=== PATIENT | female | born 1985 | race Caucasian/White ===

== ENCOUNTER 2019-11-25 18:28 | Emergency (ER) | payer BC, SELFPAY ==
[2019-11-25 18:49] VITALS: BP 169/106; PULSE 85; RESP 18; TEMP 36.7; O2SAT 98; BMI 34.2
--- NOTE | 2019-11-25 20:26 | ED_ITS ---
HPI - General Adult General: Chief complaint: General Medical Stated complaint: was SOB yesterday-resolved now Time Seen by Provider: 11/25/19 20:26 Source: patient Mode of arrival: ambulatory Limitations: no limitations History of Present Illness: HPI narrative: Patient comes in today for complaints of difficulty breathing and was awakened 3 times last night. Patient was concerned that there may be increased acidosis due to her diabetes not being controlled well. Patient's last A1c was around July and was noted to be 7.5. Patient takes Trulicity for her blood sugar control. Patient appears well. Patient appears in no acute distress. Patient reports just feeling tired due to poor sleep last night. Associated symptoms: Reports dyspnea Review of Systems General: Reports: 10 or more systems reviewed and unremarkable except in HPI and below Resp: Reports: dyspnea PFSH ED PFSH: Social History Smoking and tobacco status: never smoked Female Reproductive History: Date of last menstrual period: 11/06/19 Physical Exam Const: COMMON NORMALS: no acute distress and patient oriented x3 GENERAL APPEARANCE: cooperative HENMT: COMMON NORMALS: normocephalic, TM's normal bilaterally and Normal external nose present HEAD & SCALP: normal to inspection and normocephalic NOSE: Normal external nose present TYMPANIC MEMBRANE: TM's normal bilaterally MOUTH: Normal oral and palatal mucosa present THROAT: posterior oropharynx normal Eye: GENERAL EYE: appearance normal, both eyes and all related structures Neck/C-Spine: COMMON NORMALS: full ROM Lymph: LYMPHATIC: no lymphadenopathy noted Chest: COMMONS NORMALS: normal inspection of the chest Resp: COMMON NORMALS: normal respiratory effort EFFORT & INSPECTION: Yes able to speak in complete sentences Cardio: COMMON NORMALS: regular rate and regular rhythm RATE: regular rate RHYTHM: regular rhythm GI: COMMON NORMALS: non-tender : COMMON NORMALS: Yes no CVA tenderness BLADDER/KIDNEY EXAM: Yes no CVA tenderness Back/Pelvis: COMMON NORMALS: no CVA tenderness and thoracic and lumbar spine normal to inspection Extremity: COMMON NORMALS: normal to inspection Neuro: COMMON NORMALS: patient oriented x3 and moves all extremities Psych: COMMON NORMALS: mental status grossly normal and cooperative Skin: COMMON NORMALS: no rashes or lesions noted GENERAL SKIN EXAM: no rashes or lesions noted Course Vital Signs: Vital signs: Vital Signs Temperature 98.0 F 11/25/19 18:49 Pulse Rate 85 11/25/19 18:49 Respiratory Rate 18 11/25/19 18:49 Blood Pressure 169/106 11/25/19 18:49 Pulse Oximetry 98 11/25/19 18:49 MDM - General Adult MDM Narrative: Medical decision making narrative: Patient came in today for complaints of difficulty sleeping last night with episodes of shortness of breath. Patient reported that she ended up eating a little later than usual at night which she thinks caused her blood sugar to be higher today. On exam p atient appears well. Lungs are clear to auscultation. Skin is warm and dry color is pink. Vital signs are normal, except for some mild elevation of blood pressure. No signs of distress. Differential diagnosis includes hyperglycemia, GERD, sleep apnea. Reviewed exam with patient laboratory values were normal. Recommended follow-up with primary care discussed at this time to monitor eating too late in the evening prior to bed as I believe it may be secondary to a reflux issue also recommended monitoring carbs and maintaining 150 g or less of carbs a day. Patient reports understanding of care plan and need for follow-up. Lab Data: Labs: Lab Results 11/25/19 11/25/19 11/25/19 Range/Units 20:55 20:55 20:55 WBC 8.8 (4.0-10.0) 10^3/ uL RBC 4.58 (4.1-5.3) 10^6/u L Hgb 13.1 (11.5-15.3) g/dL Hct 39.2 (37.0-47.0) % MCV 85.6 (81-99) fL MCH 28.6 (28.0-34.0) pg MCHC 33.4 (30.0-36.0) g/dL RDW 12.2 (12.1-15.1) % Plt Count 255 (130-400) 10^3/c mm MPV 9.2 (7.4-10.4) fL Neut % (Auto) 52.3 % Lymph % (Auto) 41.7 % Jasper % (Auto) 4.5 % Eos % (Auto) 0.5 % Baso % (Auto) 0.5 % Neut # (Auto) 4.6 (1.8-7.7) 10^3/u L Lymph # (Auto) 3.7 (0.8-4.8) 10^3/u L Jasper # (Auto) 0.4 (0.2-0.9) 10^3/u L Eos # (Auto) 0.0 (0.0-0.8) 10^3/u L Baso # (Auto) 0.0 (0.0-0.1) 10^3/u L Nucleated RBC % (a uto) 0 % Nucleated RBCs # 0.0 /100WBC Sodium 137 (136-145) mmol/L Potassium 4.1 (3.5-5.1) mmol/L Chloride 100 (98-107) mmol/L Carbon Dioxide 25 (22-29) mmol/L Anion Gap 16.1 (5-19) BUN 11 (6-20) mg/dL Creatinine 0.7 (0.5-0.9) mg/dL GFR Calculation 96.4 (90-130) mL/min Glucose 217 H (65-115) mg/dL Calculated Osmolal ity 287 (285-295) mOsm/k g Calcium 9.2 (8.5-10.5) mg/dL Total Bilirubin 0.4 (0.15-1.2) mg/dL AST 14 (0-32) U/L ALT 12 (0-33) U/L Alkaline Phosphata se 40 (35-105) IU/L Total Protein 7.1 (6.6-8.7) g/dL Albumin 4.5 (3.5-5.2) g/dL Globulin 2.6 (1.3-4.6) g/dL Urine Color (Yellow) Urine Appearance (CLEAR) Urine pH (5-7) Ur Specific Gravit y (1.005-1.030) Urine Protein (Negative) Urine Glucose (UA) (Normal) Urine Ketones (Negative) Urine Blood (Negative) Urine Nitrate (Negative) Urine Bilirubin (NEGATIVE) Urine Urobilinogen (Negative) mg/dL Ur Leukocyte Clara ase (Negative) Urine RBC (0-2) /hpf Urine WBC (0-5) /hpf Ur Squamous Epith Cells (0-5) Urine Bacteria (NONE) Urine Mucus Serum Ketones Negative (Negative) 11/25/19 Range/Units 21:00 WBC (4.0-10.0) 10^3/ uL RBC (4.1-5.3) 10^6/u L Hgb (11.5-15.3) g/dL Hct (37.0-47.0) % MCV (81-99) fL MCH (28.0-34.0) pg MCHC (30.0-36.0) g/dL RDW (12.1-15.1) % Plt Count (130-400) 10^3/c mm MPV (7.4-10.4) fL Neut % (Auto) % Lymph % (Auto) % Jasper % (Auto) % Eos % (Auto) % Baso % (Auto) % Neut # (Auto) (1.8-7.7) 10^3/u L Lymph # (Auto) (0.8-4.8) 10^3/u L Jasper # (Auto) (0.2-0.9) 10^3/u L Eos # (Auto) (0.0-0.8) 10^3/u L Baso # (Auto) (0.0-0.1) 10^3/u L Nucleated RBC % (a uto) % Nucleated RBCs # /100WBC Sodium (136-145) mmol/L Potassium (3.5-5.1) mmol/L Chloride (98-107) mmol/L Carbon Dioxide (22-29) mmol/L Anion Gap (5-19) BUN (6-20) mg/dL Creatinine (0.5-0.9) mg/dL GFR Calculation (90-130) mL/min Glucose (65-115) mg/dL Calculated Osmolal ity (285-295) mOsm/k g Calcium (8.5-10.5) mg/dL Total Bilirubin (0.15-1.2) mg/dL AST (0-32) U/L ALT (0-33) U/L Alkaline Phosphata se (35-105) IU/L Total Protein (6.6-8.7) g/dL Albumin (3.5-5.2) g/dL Globulin (1.3-4.6) g/dL Urine Color Yellow (Yellow) Urine Appearance Cloudy (CLEAR) Urine pH 6.5 (5-7) Ur Specific Gravit y 1.015 (1.005-1.030) Urine Protein Neg (Negative) Urine Glucose (UA) 4+ H (Normal) Urine Ketones Negative (Negative) Urine Blood Neg (Negative) Urine Nitrate Negative (Negative) Urine Bilirubin Neg (NEGATIVE) Urine Urobilinogen 1 H (Negative) mg/dL Ur Leukocyte Clara ase Negative (Negative) Urine RBC 0-4 H (0-2) /hpf Urine WBC 0-4 H (0-5) /hpf Ur Squamous Epith Cells 15-25 H (0-5) Urine Bacteria 4+ H (NONE) Urine Mucus 1+ Serum Ketones (Negative) Discharge Plan Discharge Patient Disposition: Home, Self-Care Clinical Impression: Diabetes Qualifiers: Diabetes mellitus type: type 2 Diabetes mellitus senior care insulin use: without keno terminal operator use Diabetes mellitus complication status: with hyperglycemia Qualified Code(s): E11.65 - Type 2 diabetes mellitus with hyperglycemia Condition: Stable Discharge Orders: Discharge Order (Routine); Ordered 11/25/19 Ordered By: Andrés Ruth Discharge Diet: Usual diet Discharge Activity: Increase activity as tolerated Activity Restrictions/Additional Instructions: Continue routine medication as directed. Activity as tolerated. Follow-up with primary care for further treatment. Return to the ER for high fever or incr eased shortness of breath or worsening symptoms. Coding Level of Care Code ED Director Shopper Marketing for Chg Fwd Exam Comprehensive
[2019-11-25 21:06] LABS: Basophils % 0.5 %; Eosinophils % 0.5 %; Hematocrit 39.2 % (37.0-47.0); Hemoglobin 13.1 g/dL (11.5-15.3); Lymphocytes # 3.7 10^3/uL (0.8-4.8); Lymphocytes % 41.7 %; Mean Corpuscular HGB Conc 33.4 g/dL (30.0-36.0); Mean Corpuscular Hemoglobin 28.6 pg (28.0-34.0); Mean Corpuscular Volume 85.6 fL (81-99); Mean Platelet Volume 9.2 fL (7.4-10.4); Monocytes # 0.4 10^3/uL (0.2-0.9); Monocytes % 4.5 %; Neutrophils # 4.6 10^3/uL (1.8-7.7); Neutrophils % 52.3 %; Nucleated Red Blood Cells % 0 %; Platelet Count 255 10^3/cmm (130-400); Red Blood Count 4.58 10^6/uL (4.1-5.3); Red Cell Distribution Width 12.2 % (12.1-15.1); White Blood Count 8.8 10^3/uL (4.0-10.0)
[2019-11-25 21:21] LABS: Alanine Aminotransferase 12 U/L (0-33); Albumin Level 4.5 g/dL (3.5-5.2); Alkaline Phosphatase 40 IU/L (35-105); Anion Gap 16.1 (5-19); Aspartate Amino Transferase 14 U/L (0-32); Blood Urea Nitrogen 11 mg/dL (6-20); Calcium 9.2 mg/dL (8.5-10.5); Carbon Dioxide 25 mmol/L (22-29); Chloride 100 mmol/L (98-107); Globulin 2.6 g/dL (1.3-4.6); Glomerular Filtration Rate 96.4 mL/min (90-130); Glucose 217 mg/dL (65-115); Osmolality Calculated 287 mOsm/kg (285-295); Potassium 4.1 mmol/L (3.5-5.1); Sodium 137 mmol/L (136-145); Total Bilirubin 0.4 mg/dL (0.15-1.2); Total Protein 7.1 g/dL (6.6-8.7)
[2019-11-25 21:36] LABS: Ketone (Acetest) Serum Negative (Negative)
[2019-11-25 21:47] LABS: Add Urine Microscopic? YES; Bilirubin Urine Neg (NEGATIVE); Blood Urine Neg (Negative); Glucose Urine UA 4+ (Normal); Ketones Urine Negative (Negative); Leukocyte Esterase Urine Negative (Negative); Nitrate Urine Negative (Negative); Protein Urine Neg (Negative); Specific Gravity, Urine 1.015 (1.005-1.030); Urine Appearance Cloudy (CLEAR); Urine Color Yellow (Yellow); Urobilinogen Urine 1 mg/dL (Negative); pH Urine 6.5 (5-7)
[2019-11-25 21:48] LABS: Add Urine Culture? No; Bacteria Urine 4+; Mucus Urine 1+; RBC Urine 0-4 /hpf (0-2); Squamous Epithelial Cell Urine 15-25 (0-5); WBC Urine 0-4 /hpf (0-5)
[2019-11-25 22:27] VITALS: BP 130/84; PULSE 79; RESP 18; O2SAT 99
== END 2019-11-25 22:28 | disposition home or self-care (01) ==
PROVIDERS: Emergency Provider Nurse Practitioner Family; PCP Nurse Practitioner Family
DX: E11.65 Type 2 diabetes mellitus with hyperglycemia (principal)
CPT/HCPCS: 12345; 80053; 81001; 82009; 85025; 99281; 99282

== ENCOUNTER 2023-10-15 18:58 | Observation (INO) | payer OTHER, SELFPAY ==
[2023-10-15] VITALS (8 sets, daily range): BP systolic 109–167; BP diastolic 71–97; PULSE 75–99; RESP 12–29; TEMP 36.7–36.9; O2SAT 98–99; BMI 30.7
--- NOTE | 2023-10-15 19:30 | XR_ITS ---
WS: [id number] Portable AP upright chest, 10/15/2023 Clinical Data: cp Comparison: Portable chest, 07/20/2006. Findings: No nodules, masses or effusions are seen. The heart is normal. The pulmonary vascularity is not increased. No pneumonia or pneumothorax is seen. Monitor leads are on the chest wall. Impression: Negative chest.
--- NOTE | 2023-10-15 19:30 | ECG_ITS ---
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 Measurements Intervals [place] Rate: 89 P: 37 [place]: 137 QRS: -18 QRSD: 97 T: 19 QT: 332 QTc: 406 Interpretive Statements SINUS RHYTHM WITH SINUS ARRHYTHMIA POSSIBLE ANTERIOR MYOCARDIAL INFARCTION , PROBABLY OLD [30 ms Q WAVE IN V3/V4, OR R < 0.2 mV IN V4] No previous ECG available for comparison Electronically Signed On 10-16-2023 17:02:51 CDT by Rachid Burleson M.D. [email or web address] Distribution Systemsforrest general hospitalElias Borges Urzed[facility].Bookitit/store/NU/[id number] f
--- NOTE | 2023-10-15 20:00 | W.ED.CHESTPA ---
HPI - Chest Pain General: Chief Complaint: Chest Pain Stated Complaint: Chest pain, Back Pain, High BP Time Seen by Provider: 10/15/23 19:33 Source: patient Mode of arrival: ambulatory Limitations: no limitations History of Present Illness: 38-year-old female states that she had an episode of chest pain around 6 PM states chest pain lasted roughly 10 minutes is a dull ache in the center of her chest. She does have history of diabetes. She does have a strong family history for heart disease well she has no history of heart disease herself. She states she been chest pain-free since then and has had no pain currently denies any shortness of breath nausea or diaphoresis Associated symptoms: Deny abdominal pain, dyspnea, fever(s), nausea or vomiting Review of Systems Const: Denies: fever(s), chills, body aches or change in appetite Eyes: Denies: blurry vision or eye discomfort ENMT: Denies: throat pain or dental pain Card: Reports: chest pain Resp: Denies: dyspnea GI: Denies: abdominal pain, nausea, vomiting or diarrhea : Denies: dysuria Musc: Denies: neck pain or back pain Skin/Breast: Denies: rash Neuro: Denies: headache(s) PFSH ED PFSH: Social History Smoking and tobacco/nicotine status: never used tobacco/nicotine Physical Exam Const: COMMON NORMALS: no acute distress, patient oriented x3 and healthy appearing HENMT: COMMON NORMALS: normocephalic and atraumatic HEAD & SCALP: normocephalic and atraumatic Eye: COMMON NORMALS: Equal, round and reactive pupils present and EOMs intact bilaterally PUPIL: Yes Equal, round and reactive pupils present Neck/C-Spine: COMMON NORMALS: full ROM and supple Chest: COMMONS NORMALS: normal inspection of the chest Resp: COMMON NORMALS: normal respiratory effort, No retractions, No use of accessory muscles and clear to auscultation bilaterally AUSCULTATION: clear to auscultation bilaterally Cardio: COMMON NORMALS: regular rate, regular rhythm and No murmurs present (Cardio) RATE: regular rate RHYTHM: regular rhythm Extremity: COMMON NORMALS: normal to inspection and full ROM Neuro: COMMON NORMALS: patient oriented x3, moves all extremities and no focal motor deficits Psych: COMMON NORMALS: mental status grossly normal, Normal thought process present and cooperative THOUGHT PROCESS: Normal thought process present Skin: COMMON NORMALS: no rashes or lesions noted and no wounds GENERAL SKIN EXAM: no rashes or lesions noted Course Vital Signs: Vital signs: Vital Signs Temperature 98.1 F 10/15/23 19:05 Pulse Rate 84 10/15/23 20:30 Respiratory Rate 16 10/15/23 20:30 Blood Pressure 109/80 10/15/23 20:30 Pulse Oximetry 99 10/15/23 20:30 MDM - Chest Pain Medical Decision Making Patient presents for chest pain is since resolved her initial repeat troponin here negative blood pressure is improved here as well x-ray showed no acute abnormality she has no signs of ACS no signs of dissection or PE she stable for discharge she is follow-up with PCP return if worsening. Medical Records I reviewed the patient's medical records. Lab Data I reviewed the patient's lab results. 10/15/23 19:52 10/15/23 19:52 Laboratory Results WBC 7.49 10^3/uL (3.29-11.43) 10/15/23 19:52 RBC 4.58 10^6/uL (3.85-5.65) 10/15/23 19:52 Hgb 13.30 g/dL (11.27-16.99) 10/15/23 19:52 Hct 40.3 % (36-47) 10/15/23 19:52 MCV 88.0 fl (85-98) 10/15/23 19:52 MCH 29.0 pg (27-33) 10/15/23 19:52 MCHC 33.0 g/dL (30-55) 10/15/23 19:52 RDW 12.8 % (12.1-15.1) 10/15/23 19:52 Plt Count 306 10^3/cmm (157-399) 10/15/23 19:52 MPV 9.1 fL (7.4-10.4) 10/15/23 19:52 Neut % (Auto) 53.9 % 10/15/23 19:52 Lymph % (Auto) 39.1 % 10/15/23 19:52 Gove % (Auto) 5.2 % 10/15/23 19:52 Eos % (Auto) 0.9 % 10/15/23 19:52 Baso % (Auto) 0.5 % 10/15/23 19:52 Neut # (Auto) 4.03 10^3/uL (1.8-7.7) 10/15/23 19:52 Lymph # (Auto) 2.9 10^3/uL (0.8-4.8) 10/15/23 19:52 Gove # (Auto) 0.4 10^3/uL (0.2-0.9) 10/15/23 19:52 Eos # (Auto) 0.1 10^3/uL (0.0-0.8) 10/15/23 19:52 Baso # (Auto) 0.0 10^3/uL (0.0-0.1) 10/15/23 19:52 Nucleated RBC % (auto) 0 % 10/15/23 19:52 Nucleated RBCs # 0.0 /100WBC 10/15/23 19:52 Sodium 138 mmol/L (136-145) 10/15/23 19:52 Potassium 4.4 mmol/L (3.5-5.1) 10/15/23 19:52 Chloride 104 mmol/L (98-107) 10/15/23 19:52 Carbon Dioxide 25 mmol/L (22-29) 10/15/23 19:52 Anion Gap 13.4 (5-19) 10/15/23 19:52 BUN 20 mg/dL (6-20) 10/15/23 19:52 Creatinine 0.8 mg/dL (0.5-0.9) 10/15/23 19:52 GFR Calculation 80.7 mL/min (90-130) L 10/15/23 19:52 Glucose 156 mg/dL (65-115) H 10/15/23 19:52 Calculated Osmolality 292 mOsm/kg (285-295) 10/15/23 19:52 Calcium 9.0 mg/dL (8.5-10.5) 10/15/23 19:52 Total Bilirubin 0.4 mg/dL (0.15-1.2) 10/15/23 19:52 AST 14 U/L (0-32) 10/15/23 19:52 ALT 12 U/L (0-33) 10/15/23 19:52 Alkaline Phosphatase 28 U/L (35-105) L 10/15/23 19:52 Troponin T Baseline < 6 ng/L (0-10) 10/15/23 19:52 Delta Troponin T 6.55241 ABS# (0-10) 10/15/23 21:27 Total Protein 6.9 g/dL (6.6-8.7) 10/15/23 19:52 Albumin 4.5 g/dL (3.5-5.2) 10/15/23 19:52 Globulin 2.4 g/dL (1.3-4.6) 10/15/23 19:52 Lipase 25 U/L (13-60) 10/15/23 19:52 Influenza Type A Ag negative (Negative) 10/15/23 20:19 Influenza Type B Ag negative (Negative) 10/15/23 20:19 XR interpretation done by ED provider, pending radiology final review EKG Data EKG 1: I personally reviewed and interpreted this EKG as follows: EKG interpretation date: 10/15/23 EKG interpretation time: 21:35 Interpretation: nsr hr [address] or t wave abnormalities qrs 115 qtc 417 Discharge Plan Discharge Patient Disposition: Home Clinical Impression: Chest pain Condition: Stable Discharge Orders: Discharge ED (Routine); Ordered 10/15/23 Ordered By: Gonzalo Sutton Referrals: Neil,RADHA Richardson [Primary Care Provider] - 1-3 days Discharge Diet: Advance as tolerated Discharge Activity: Resume usual activity Patient Instructions: Chest Pain (ED) Coding Level of Care Code ED Food Processing Plant Manager for Deshawng Karin
[2023-10-15] MEDS: aspirin 81 mg Chew Tablet 324 MG PO (20:05)
[2023-10-15 20:06] LABS: Basophils % 0.5 %; Eosinophils # 0.1 10^3/uL (0.0-0.8); Eosinophils % 0.9 %; Hematocrit 40.3 % (36-47); Lymphocytes # 2.9 10^3/uL (0.8-4.8); Lymphocytes % 39.1 %; Mean Platelet Volume 9.1 fL (7.4-10.4); Monocytes # 0.4 10^3/uL (0.2-0.9); Monocytes % 5.2 %; Neutrophils # 4.03 10^3/uL (1.8-7.7); Neutrophils % 53.9 %; Nucleated Red Blood Cells % 0 %; Platelet Count 306 10^3/cmm (157-399); Red Blood Count 4.58 10^6/uL (3.85-5.65); Red Cell Distribution Width 12.8 % (12.1-15.1); White Blood Count 7.49 10^3/uL (3.29-11.43)
[2023-10-15 20:24] LABS: Troponin(5th) Baseline < 6 ng/L (0-10)
[2023-10-15 20:27] LABS: Alanine Aminotransferase 12 U/L (0-33); Albumin Level 4.5 g/dL (3.5-5.2); Alkaline Phosphatase 28 U/L (35-105); Anion Gap 13.4 (5-19); Aspartate Amino Transferase 14 U/L (0-32); Blood Urea Nitrogen 20 mg/dL (6-20); Carbon Dioxide 25 mmol/L (22-29); Chloride 104 mmol/L (98-107); Creatinine Clr Calc Pharmacy 92.0211; Globulin 2.4 g/dL (1.3-4.6); Glomerular Filtration Rate 80.7 mL/min (90-130); Glucose 156 mg/dL (65-115); Lipase 25 U/L (13-60); Osmolality Calculated 292 mOsm/kg (285-295); Potassium 4.4 mmol/L (3.5-5.1); Sodium 138 mmol/L (136-145); Total Bilirubin 0.4 mg/dL (0.15-1.2); Total Protein 6.9 g/dL (6.6-8.7)
[2023-10-15 20:40] LABS: Influenza A by IFA negative (Negative); Influenza B by IFA negative (Negative)
--- NOTE | 2023-10-15 21:35 | ECG_ITS ---
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 Measurements Intervals [place] Rate: 87 P: 44 [place]: 137 QRS: 34 QRSD: 115 T: 45 QT: 373 QTc: 450 Interpretive Statements SINUS RHYTHM POSSIBLE ANTERIOR MYOCARDIAL INFARCTION , PROBABLY OLD [30 ms Q WAVE IN V3/V4, OR R < 0.2 mV IN V4] Compared to ECG 10/15/2023 19:06:39 Sinus arrhythmia no longer present Myocardial infarct finding still present Electronically Signed On 10-16-2023 17:08:19 CDT by Rachid Burleson M.D. [id number]
[2023-10-15 21:51] LABS: Troponin 5 2HR 12.53 ng/L (0-10); Troponin 5 2HR Delta 6.53001 ABS# (0-10)
--- NOTE | 2023-10-15 22:23 | P.HP_ITS ---
Providers/Chief Complaint 2 Primary Care Provider: RADHA Hollis Chief Complaint: Chest pain, Back Pain, High BP History of Present Illness Luisa Anne is a 38 year old female with past medical history significant for type 2 diabetes mellitus on insulin, hypertriglyceridemia, obesity, and Asperger syndrome who presents emergency department for left-sided chest pressure. She reports onset around 5:30 PM today. Describes the location is left-sided chest. Rates about a 4-5 out of 10. Reports it lasted about 10 minutes. She was walking when it happened. She is unsure about alleviating or aggravating factors. She is currently chest pain-free in the emergency department. Her mother is bedside reports extensive family history on the maternal side for heart disease. She reports the patient's biological father at age 39 from suspected son with cardiac reason being within the differential. 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 She denies shortness of breath, nausea, vomiting, or diaphoresis. Denies abdominal symptoms. Review of Systems 2 Narrative: A complete review of systems was obtained and is negative except as stated in HPI. Medications/Allergies Allergies Allergy/AdvReac Type Severity Reaction Status Date / Time No Known Allergies Allergy Verified 11/25/19 18:54 PFSH Acute 2 PFSH: Medical History Obesity Hypertriglyceridemia Type 2 diabetes mellitus Asperger syndrome Surgical History Hx of LASIK Family History Father Sudden Social History Smoking and tobacco/nicotine status: never used tobacco/nicotine Alcohol intake: never Substance/Drug Use: never Vitals/I&O/Wt Last Vital Signs Temp 98.1 F 10/15/23 19:05 Pulse 84 10/15/23 20:30 Resp 16 10/15/23 20:30 BP 124/80 10/15/23 22:06 Pulse Ox 98 10/15/23 22:06 Weight last 48 hrs Weight 76.204 kg Physical Exam 2 Narrative: General: Patient is awake and alert. Head: Normocephalic. Atraumatic. EOM intact. Neck: No JVD. Cardiovascular: RRR. No gallops. No murmurs. Lungs: Clear to auscultation, no use of accessory muscles, no crackles or wheezes. Skin: No jaundice. No rashes. Abdomen: Normal bowel sounds, abdomen soft and nontender. Genito Urinary: Genital exam not performed since complaints not related. Rectal: Rectal exam not performed since no symptoms indicated blood loss. Extremities: No cyanosis or clubbing. Musculoskeletal: No swollen or erythematous joints. Neurological: Moves all 4 extremities. No myoclonus. Data 10/15/23 19:52 10/15/23 19:52 A&P Assessment and plan (1) Chest pain: Initial troponin <6 2 hour troponin 12.53 Delta trop 6.53 (intermediate risk) Family history and other risk factors (hypertriglyceridemia, insulin dependent diabetes mellitus, obesity) noted Continue trending troponin Continuous telemetry monitoring NPO after midnight Cardiac stress testing ordered Echocardiogram ordered A1c and lipids in AM for risk stratification (2) Type 2 diabetes mellitus: Reduce basal insulin due to NPO after midnight status Sliding scale insulin correction (3) Hypertriglyceridemia: Continue home meds Lipid panel in AM (4) Obesity: Would benefit from weight loss (5) Asperger syndrome: Plan DVT ppx: Lovenox Code Status: Full Code Attestations 2 Medical Necessity Statement*: Patient presents with chest pain with multiple risk factors concerning for coronary disease for which patient will be admitted to observation for ischemic evaluation with stress testing, echo, telemetry monitoring and serial troponin. Coding Level of Care Code Acute Code for [facility] Diagnoses Chest pain R07.9 Type 2 diabetes mellitus E11.9 Hypertriglyceridemia E78.1 Obesity E66.9 Asperger syndrome F84.5
[2023-10-15 23:04] LABS: D Dimer <= 0.27 ug/mLFEU (0-0.59)
--- NOTE | 2023-10-15 23:15 | PC.NURSE ---
Patient was initially discharged out of system but had not left the room. Dr Sutton decided to keep patient an place on observation. Patient was re-admitted in system.
[2023-10-15] MEDS: enoxaparin 40 mg/0.4 mL Syringe SUBCUT (23:46)
[2023-10-16] VITALS (59 sets, daily range): BP systolic 92–141; BP diastolic 60–90; PULSE 58–90; RESP 10–20; TEMP 36.7–37.3; O2SAT 95–99
[2023-10-16 02:14] LABS: Estmated Average Glucose 151; Hemoglobin A1C 6.9 % (4.0-6.0)
[2023-10-16 02:22] LABS: Troponin 5 6HR 42.24 ng/L (0-10)
[2023-10-16 02:28] LABS: Chol HDL Ratio 3.37 mg/dL (0.0-4.40); Cholesterol 155 mg/dL (0-200); HDL Cholesterol 46 mg/dL (60-100); LDL Cholesterol Calculated 91 mg/dL (50-129); LDL HDL Ratio 1.98 RATIO (0.00-3.22); Triglycerides 89 mg/dL (0-150)
[2023-10-16 02:30] LABS: Troponin 5 6HR Delta 36.24001 ng/L (0-12)
--- NOTE | 2023-10-16 03:21 | PC.NURSE ---
per MD, to skip loading bolus due to recent lovenox injection
[2023-10-16 03:23] LABS: Platelet Count 288 10^3/cmm (157-399)
[2023-10-16] MEDS: heparin drip 25,000 UNIT/500 ML PREMIX 22 UNIT IV (03:36)
[2023-10-16] MEDS: atorvastatin 40 mg Tablet 80 MG PO ×2 (03:36→20:31)
[2023-10-16] MEDS: clopidogrel 300 mg Tablet 600 MG PO (03:36)
--- NOTE | 2023-10-16 06:00 | ECG_ITS ---
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 Measurements Intervals [place] Rate: 82 P: 45 RI: 144 QRS: -3 QRSD: 105 T: 33 QT: 351 QTc: 411 Interpretive Statements SINUS RHYTHM Compared to ECG 10/15/2023 21:35:17 Myocardial infarct finding no longer present Electronically Signed On 10-16-2023 17:07:48 CDT by Rachid Burleson M.D. [id number]
--- NOTE | 2023-10-16 06:44 | P.CONIM_ITS ---
Providers/Reason For Consult 2 Consulting Physician/Specialty*: Rachid Burleson MD/ Cardiology Reason for Consult*: NSTEMI Requesting Physician: Dr Louise Attending Physician: Sebastián Louise MD Primary Care Provider: RADHA Hollis History of Present Illness History of Present Illness Luisa Anne is a 38 year old female with past medical history of diabetes, hypertriglyceridemia, family history of CAD who presented to hospital with substernal chest pain. Troponin elevated significantly from 6-42 at 6 hours. EKG not showing significant ischemic changes.No more chest pain at this time. Review of Systems 2 Const: Denies: fever(s), chills, body aches or change in appetite Eyes: Denies: blurry vision or eye discomfort ENMT: Denies: throat pain or dental pain Card: Reports: chest pain Resp: Denies: dyspnea GI: Denies: abdominal pain, nausea, vomiting or diarrhea : Denies: dysuria Musc: Denies: neck pain or back pain Skin/Breast: Denies: rash Neuro: Denies: headache(s) Medications/Allergies Home Medications Medication Instructions Recorded Confirmed Last Taken Type fenofibrate nanocrystallized 145 145 mg PO DAILY 10/15/23 10/15/23 1 Day Ago History mg tablet ~10/14/23 insulin glargine 100 unit/mL (3 18 unit SUBCUT DAILY 10/15/23 10/15/23 1 Day Ago History mL) subcutaneous pen (Lantus ~10/14/23 Solostar U-100 Insulin) insulin lispro 100 unit/mL See Protocol SUBCUT TIDWM 10/15/23 10/15/23 10/15/23 History subcutaneous pen metformin 500 mg tablet 500 mg PO BID 10/15/23 10/15/23 10/15/23 History semaglutide 3 mg tablet (Rybelsus) 3 mg PO DAILY 10/15/23 10/15/23 1 Day Ago History ~10/14/23 Allergies Allergy/AdvReac Type Severity Reaction Status Date / Time No Known Allergies Allergy Verified 11/25/19 18:54 Current Medications Generic Name Dose Route Start Last Admin Trade Name Freq PRN Reason Stop Dose Admin Atorvastatin Calcium 80 mg 10/16/23 03:16 10/16/23 03:36 Atorvastatin 40 Mg Tablet PO 80 mg BEDTIME LAURIE Administration Heparin Sodium/Sodium Chloride 25,000 unit in 500 mls @ 0 mls/hr 10/16/23 03:30 10/16/23 06:09 Heparin Drip IV 13.75 unit/kg/hr .Q0M LAURIE 22 mls/hr Titration Protocol Per Protocol PFSH Acute 2 PFSH: Medical History Obesity Hypertriglyceridemia Type 2 diabetes mellitus Asperger syndrome Surgical History Hx of LASIK Family History Father Sudden Social History Smoking and tobacco/nicotine status: never used tobacco/nicotine Alcohol intake: never Substance/Drug Use: never Female Reproductive History: Date of last menstrual period: 10/09/23 Vitals/I&O/Wt Last Vital Signs Temp 98.0 F 10/16/23 04:00 Pulse 89 10/16/23 04:54 Resp 18 10/16/23 04:00 BP 132/86 10/16/23 04:00 Pulse Ox 99 10/16/23 04:00 O2 Del Method Room Air 10/16/23 04:00 10/15/23 10/15/23 10/16/23 14:59 22:59 06:59 Intake Total 53.9 / 53.9 Output Total 0 / 0 Balance 53.9 / 53.9 Weight last 48 hrs Weight 175 lb 14.4 oz Weight 176 lb 6.4 oz Weight 168 lb Physical Exam 2 Narrative: GENERAL: Patient is alert, awake and oriented x3. [] NECK: No jugular vein distension. [] HEENT: No cyanosis. No icterus. No pallor. [] HEART: Regular S1 and S2. No murmur, rub or gallop. [] LUNGS: Clear to auscultate bilaterally. [] CENTRAL NERVOUS SYSTEM: Grossly nonfocal. [] EXTREMITIES: Lower extremities with no edema bilaterally. Data 10/16/23 01:51 10/15/23 19:52 A&P Assessment and plan (1) NSTEMI (non-ST elevated myocardial infarction): (2) Chest pain: (3) Hypertriglyceridemia: (4) Type 2 diabetes mellitus: Plan Patient has presented with typical chest pain symptoms. She has multiple risk factors for CAD. Troponin did increase significantly from baseline of 6-42 at 6 hours. He has family history of CAD. We will proceed with coronary angiogram possible PCI. N.p.o. for now. Will recommend starting low-dose beta-marshal. Echo is pending. Thank you for involving us with care of this patient. We will continue to follow. Please call with questions. Consult Attestations 2 Medical Necessity Statement: Care expected to cross 2 midnights. Coding Level of Care Code Acute Code for [facility] Diagnoses NSTEMI (non-ST elevated myocardial infarction) I21.4 Chest pain R07.9 Hypertriglyceridemia E78.1 Type 2 diabetes mellitus E11.9
--- NOTE | 2023-10-16 09:04 | PC.CHAP ---
Pastoral Care Encounter/Spiritual Assessment Type of Contact [] Declined side panel hanger visit [] Patient/Family/Request visit [] Outpatient visit [] Follow-up visit [] Physician referral [] Code/Alert [x] Routine visit [] Staff referral [] Actively dying [] Patient sleeping [x] Family support [] [] Out of room [] Palliative care [] [] Receiving care in room [] Pre-surgical visit [] Trauma [] Long length of stay [] ICU visit [] Other: Relational/Emotional Strength [x] Patient feels connected with others/family/visitors/staff [] Distress [] Loneliness/isolation [] Abandonment Spirituality of Patient [x] Person of Rut [] Attends Nondenominational of their Rut [x] Believes in Prayer [] Reads Bible or Congregation materials [] There are Spiritual issues to be addressed Sales Market Leader Interventions [x] Prayer [x] Active listening [] Non-anxious presence [x] Spiritual/emotional support [] Crisis/trauma care [] Spiritual counseling [] Bereavement support [] Provided bereavement packet [] Provided Bible/devotional materials [] Provided toy/stuffed animal, coloring book to patient or family member [] Provided Communion [] Anointing/[place] [] Salvation [x] Completed spiritual assessment [] Other: Impact on Illness or Injury [] Angry [] Fearful [] Anxious [] Often cries [] Exhaustion [] Unable to work [] Unable to attend jew [] Unable to walk/stand [] Unable to read [] Unable to drive [] Unable to eat/drink [] Unable to sleep [] Unable to be with family [] Patient intubated [] Other: Summary Time spent with patient 5 min
[2023-10-16] MEDS: aspirin 81 mg EC Tablet PO (09:20)
[2023-10-16] MEDS: fenofibrate 145 mg Tablet PO (09:20)
[2023-10-16 09:55] LABS: Partial Thromboplastin Time 87.2 SECONDS (23.9-36.7)
--- NOTE | 2023-10-16 11:51 | P.PN_ITS ---
Vitals/I&O/Wt Last Vital Signs Temp 99.2 F 10/16/23 08:00 Pulse 86 10/16/23 08:00 Resp 18 10/16/23 04:00 BP 141/90 10/16/23 08:00 Pulse Ox 97 10/16/23 08:00 O2 Del Method Room Air 10/16/23 04:00 10/15/23 10/16/23 10/16/23 22:59 06:59 14:59 Intake Total 53.9 / 53.9 104.867 / 104.867 Output Total 0 / 0 Balance 53.9 / 53.9 104.867 / 104.867 Weight last 48 hrs Weight 79.787 kg Weight 80.014 kg Weight 76.204 kg Data 10/16/23 01:51 10/15/23 19:52 A&P Assessment and plan (1) NSTEMI (non-ST elevated myocardial infarction): (2) Type 2 diabetes mellitus: (3) Asperger syndrome: Plan Luisa Anne is a 38 year old female with past medical history significant for type 2 diabetes mellitus on insulin, hypertriglyceridemia, obesity, and Asperger syndrome who presents emergency department for left-sided chest pressure. Found to have NSTEMI. Given extensive cardiac history in the family, as per cardiology patient scheduled for cardiac cath this afternoon. She is n.p.o. Continue aspirin 81 mg daily Atorvastatin 80 mg Plavix 75 mg And heparin drip for now. Follow-up 2D echo DVT prophylaxis, already on heparin drip PUD prophylaxis with IV Pepcid 20 mg twice a day She is full code for now Plan of care discussed with family mother and at bedside. Attestations 2 Medical Necessity Statement*: She needs continued hospitalization less than 2 midnights for cardiac monitoring and catheterization for NSTEMI. Time Spent in Patient Care: 15 minutes Coding Level of Care Code Acute Code for [facility] Diagnoses NSTEMI (non-ST elevated myocardial infarction) I21.4 Type 2 diabetes mellitus E11.9 Asperger syndrome F84.5 Time Spent (min) 15
--- NOTE | 2023-10-16 13:00 | XACV_ITS ---
Exam Room: [facility] Ht: 157 cm Wt: 79 kg BSA: 1.90 m2 Gender: Female : 1985 Any Known Allergies: No known allergies Exam Priority: Routine Procedure(s): Procedure Description: Diagnostic procedure Diagnostic Cath Status: Urgent Diagnostic Findings * No significant disease noted in the Left Main, Left Anterior Descending, Right, or Circumflex coronary arteries. * Coronary angiography shows right dominance. Conclusions 1. No significant disease noted in the Left Main, Left Anterior Descending, Right, or Circumflex coronary arteries. 2. Normal left ventricular systolic function. Ejection fraction of 65%. Recommendations * Aggressive risk factor modification. * Outpatient cardiology follow up in 4 weeks. Interventional RX Recommendation: medical therapy and/or counseling Diagnostic RX Recommendation: medical therapy and/or counseling Ventriculography Ejection Fraction: 65.0 % Pressures Phase:Rest AO : 97 / 79 ( 89 ) @ 2:33:00 PM 119 / 72 ( 94 ) @ 2:40:00 PM 118 / 72 ( 94 ) @ 2:40:00 PM LV : 118 / 0 / 4 @ 2:39:00 PM 139 / -18 / 5 @ 2:39:00 PM 139 / -17 / 7 @ 2:40:00 PM Valves Phase:DefaultPhase AV : 20.0 @ 1:48:49 PM 20.0 @ 1:48:49 PM AV Mean Gradient: 27.0 @ 1:48:49 PM 27.0 @ 1:48:49 PM Clinical Evaluation EBL: 5mL-10mL Procedural Details Procedure Consent Obtained. Current Diagnosis : Chest Pain. Pre-Procedure Time Out. Identified patient by full name and date of as verbalized by the patient/guarantor. Does the consent match the physician's order: Yes. Accurate & Complete Informed Consent: Yes. Inpatient/Outpatient History & Physical on Chart: Yes. If H&P is completed, is and addenduem needed: No; If yes, is the addendum complete: N/A. Visualize and Verify Site with Patient/Guarantor: N/A. Relevant Radiology Images available: Yes. Pre-op teaching completed and patient verbalized understanding. The risks, benefits, and alternatives of sedation and/or procedure were discussed by physician. The patient agrees to continue. Procedure started. [facility] Clinical Fraility Score: 3: Managing Well. Pipe Supervisor Indications: ACS > 24 hours. Chest Pain Symptom Assessment: Atypical Angina. Correct patient, site and procedure confirmed by cath team. Current diagnosis: NSTEMI. PERRLA. Strong, equal hand medical detailist bilaterally. Lungs clear x 5 lobes. A 20 gauge IV was started in the right anticubital using aseptic technique. IV Fluids: 0.9% NaCl at KVO. 0 mL infused prior to metallurgy laboratory technician. Oxygen started at 2liters/min via nasal canula. right groin was prepped with chloroprep then draped in the usual sterile fashion. right radial was prepped with chloroprep then draped in the usual sterile fashion. Physician arrived. Physician scrubbed in. Immediate Pre-Procedure Time Out. Correct Patient: Yes; Correct Procedure: Yes; Correct Site: Yes; Correct Patient Position: Yes; Correct Supplies: Yes; Dried Flammable Prep: Yes; Blood Products Available: N/A;. Lidocaine 1% infiltrated to the right radial. Arterial access obtained. A 5 [place] TIG catheter in over wire. Contrast hand injected through the catheter. Glidewire inserted through the catheter. Wire out. [place] wire inserted through the catheter. Catheter out OTW. Wire out. A TR Band was successful obtaining hemostatsis at the Right Radial artery insertion site. Lidocaine 1% infiltrated to the right groin. Arterial access obtained with micropuncture set. A 5 [place] JL4 catheter in over wire. Multiple views taken of left coronary artery. Catheter removed over the standard wire. A 5 [place] JR4 catheter in over wire. Multiple views taken of right coronary artery. Catheter removed over the standard wire. A 5 [place] Angled Pig catheter in over wire. EDP Sample taken: LV 118/0,4; HR: 77 BPM; SpO2: 98%. LV gram performed in JARRETT @ 10 mL/second for a total of 30 mL. EDP Sample taken: LV 139/-19,5; HR: 83 BPM; SpO2: 98%. Pullback taken: LV 139/-18,7; AO 119/72(94); Mean: 27mmHg, Peak to Peak: 20mmHg, SEP: 10sec/min; HR: 81 BPM; SpO2: 98%. Catheter removed over the standard wire. A Right femoral angiogram was performed to determine safe placement of closure device. Lidocaine 1% infiltrated to the right groin. A Angio-Seal VIP ([place]) was successful obtaining hemostatsis at the Right Femoral artery insertion site. Post Procedure: Pulses reassessed and unchanged. PERRLA. Strong, equal hand medical detailist bilaterally. No VTE prophylaxis required. Medication's Wasted: Other = Fentanyl 75mcg. Medication's Wasted: Heparin = 1000 units. Medication's Wasted: Nitro = 49.6 mg. Total IV fluids: 50 mL. Complications: None. Estimated blood loss: 5mL-10mL. Responsiveness - Normal response to verbal stimuli; alert and oriented, PERRLA. Airway - Unaffected, no intervention required; spontaneous ventilation. Circulation: W/N/L, pulses unchanged. Nausea/Vomiting: No. Procedure completed. Patient transferred by bed to 1st floor. Vital chart was stopped. Access Site Site: Right Radial artery Sheath Size: 6 Fr Hemostasis Method: TR Band Hemostasis Success: Successful Site: Right Femoral artery Sheath Size: 6 Fr Hemostasis Method: Angio-Seal VIP ([place]) Hemostasis Success: Successful Procedure Medications Start: 1:10 PM Stop: 1:10 PM Medication: Versed Amount: 1 mg Route: I.V. Start: 1:10 PM Stop: 1:10 PM Medication: Benadryl Amount: 25 mg Route: I.V. Start: 1:15 PM Stop: 1:15 PM Medication: Nitrogylcerin Amount: 200 mcg Route: I.A. Start: 1:16 PM Stop: 1:16 PM Medication: Fentanyl Amount: 25 mcg Route: I.V. Start: 1:17 PM Stop: 1:17 PM Medication: Versed Amount: 1 mg Route: I.V. Start: 1:20 PM Stop: 1:20 PM Medication: Nitrogylcerin Amount: 200 mcg Route: I.A. I, the attending physician, have reviewed and verified all procedure medications. Yes, all medications given per verbal order History/Risk Factors Hypertension: No Dyslipidemia: Yes Peripheral Arterial Disease (PAD): No Myocardial Infarction ([place]): No Obesity: Yes Renal Disease: No Tobacco Use: Never Prior Interventions PCI: No CABG: No Valve Surgery: No Report Signatures Finalized by Rachid Burleson MD on 10/18/2023 10:04 PM
--- NOTE | 2023-10-16 13:02 | W.PM.OPSUD ---
Surgery/Procedure H&P Update DATE OF PROCEDURE: October 16, 2023 DATE H&P PERFORMED: 10/16/23 H&P UPDATE INFORMATION: I have reviewed H&P completed within last 30 days, I have examined patient prior to procedure and No changes to prior documentation PREOP DIAGNOSIS: NSTEMI PRIMARY INDICATION FOR PROCEDURE: NSTEMI PLANNED PROCEDURE: Left heart cath with possible percutaneous coronary intervention PATIENT REASSESSED PRIOR TO SEDATION, WITH NO CHANGE NOTED: Yes PHYSICAL EXAM: alert, oriented x 3, clear to auscultation bilaterally and regular rate & rhythm AIRWAY EVAL/ANESTHESIA PLAN: normal airway, ASA III, Local Anesthesia, Risks, benefits & alternatives of sedation and/or procedure discussed and Patient agrees to continue as planned ADDITIONAL INFORMATION: Moderate sedation
[2023-10-16 13:05] LABS: HCG, Serum Qual Negative (Negative)
[2023-10-16 20:36] LABS: Glucose Point of Care 324 mg/dL (70-110)
[2023-10-16] MEDS: insulin lispro 100 unit/1 mL SUBCUT (20:58)
--- NOTE | 2023-10-16 23:16 | USCV_ITS ---
Mild Luisa Anne Age: 38 Gender: F : 1985 Exam Date: 10/16/2023 02:23 Ordering Phys: Sebastián Louise MD Technologist: OREN Exam Location: [facility] [place] Indication: chest pain. No history of cardiac intervention per patient. BP: 118 / 64 HR: 75 Rhythm: Sinus Technical Quality: Adequate MEASUREMENTS (Male / Female) Normal Values 2D ECHO LV Diastolic Diameter PLAX 3.3 cm 4.2 - 5.9 / 3.9 - 5.3 cm IVS Diastolic Thickness 1.4 cm 0.6 - 1.0 / 0.6 - 0.9 cm IVS Systolic Thickness 1.6 cm LVPW Diastolic Thickness 1.4 cm 0.6 - 1.0 / 0.6 - 0.9 cm LVPW Systolic Thickness 1.4 cm LVOT Diameter 1.9 cm LV Ejection Fraction 2D Teich 60.3 % LV Ejection Fraction MOD 2C 62.2 % LV Ejection Fraction 2C AL 62.8 % LA Diameter 2.5 cm LA Sys Volume AL 17.6 cm cubed LA Sys Volume Index AL 9.5 cm cubed/m squared Aorta at Sinotubular Diameter 2.4 cm IVC Diameter 1.8 cm M-MODE LA Ao Ratio MM 1.7 AV Cusp Separation MM 1.6 cm DOPPLER AV Peak Velocity 161.0 cm/s LVOT Peak Velocity 103.0 cm/s AV Area Cont Eq vti 2.1 cm squared AV Area Cont Eq pk 1.9 cm squared MV Area PHT 3.7 cm squared Mitral E to A Ratio 1.3 TV Peak E Velocity 89.0 cm/s PV Peak Velocity 98.0 cm/s RV Ejection Time 0.4 s FINDINGS Left Ventricle Left ventricle is left ventricle is normal in size. LV systolic function is normal with EF of 60 to 65%. No regional wall motion abnormalities are seen. Right Ventricle Normal in size and function Right Atrium Normal in size Left Atrium Normal in size Mitral Valve Structurally normal mitral valve. Mild mitral regurgitation. Aortic Valve Structurally normal aortic valve. No significant stenosis. Mild regurgitation. Tricuspid Valve Mild tricuspid regurgitation. Insufficient TR jet to evaluate RVSP. Pulmonic Valve Mild pulmonic regurgitation. Pericardium Normal Aorta Normal in size IVC Appears to be normal CONCLUSIONS LV systolic function is normal with EF of 60-65% Mild mitral regurgitation Mild aortic regurgitation Mild tricuspid regurgitation Mild pulmonic regurgitation. No comparison studies are available. Rachid Burleson MD (Electronically Signed) Final Date: 16 October 2023 16:29 S
[2023-10-17 04:00] VITALS: BP 109/78; PULSE 84; RESP 18; TEMP 36.7; O2SAT 98
[2023-10-17 06:00] VITALS: PULSE 61
[2023-10-17 06:37] LABS: Glucose Point of Care 255 mg/dL (70-110)
[2023-10-17 07:05] VITALS: BP 115/67; PULSE 66; RESP 12; TEMP 36.3; O2SAT 99
--- NOTE | 2023-10-17 07:20 | PM.PN ---
Subjective Subjective: Patient doing well. No chest pain Vitals/I&O/Wt Last Vital Signs Temp 97.4 F L 10/17/23 07:05 Pulse 66 10/17/23 07:05 Resp 12 10/17/23 07:05 BP 115/67 10/17/23 07:05 Pulse Ox 99 10/17/23 07:05 O2 Del Method Room Air 10/17/23 07:05 10/16/23 10/17/23 10/17/23 22:59 06:59 14:59 Intake Total 795.9 / 926.100 Output Total 0 / 0 Balance 795.9 / 926.100 Weight last 48 hrs Weight 175 lb Weight 175 lb 14.4 oz Weight 176 lb 6.4 oz Weight 168 lb Physical Exam Narrative: GENERAL: Patient is alert, awake and oriented x3. [] NECK: No jugular vein distension. [] HEENT: No cyanosis. No icterus. No pallor. [] HEART: Regular S1 and S2. No murmur, rub or gallop. [] LUNGS: Clear to auscultate bilaterally. [] CENTRAL NERVOUS SYSTEM: Grossly nonfocal. [] EXTREMITIES: Lower extremities with no edema bilaterally. Data 10/16/23 01:51 10/15/23 19:52 A&P Assessment and plan (1) NSTEMI (non-ST elevated myocardial infarction): (2) Chest pain: (3) Hypertriglyceridemia: (4) Type 2 diabetes mellitus: Plan Patient doing well. no more chest pain. She can be discharged home from [facility] standpoint.Cath did not show significant stenosis. Thank you for involving us with care of this patient. Please call with questions. Attestations Medical Necessity Statement*: Care expected to cross 2midnights. Coding Level of Care Code Acute Code for [facility] Diagnoses NSTEMI (non-ST elevated myocardial infarction) I21.4 Chest pain R07.9 Hypertriglyceridemia E78.1 Type 2 diabetes mellitus E11.9
[2023-10-17] MEDS: metoprolol tartrate 25 mg Tablet 12.5 MG PO (08:45)
[2023-10-17] MEDS: fenofibrate 145 mg Tablet PO (08:45)
[2023-10-17] MEDS: aspirin 81 mg EC Tablet PO (08:46)
[2023-10-17] MEDS: insulin lispro 100 unit/1 mL SUBCUT (08:46)
--- NOTE | 2023-10-17 09:12 | P.DS_ITS ---
Discharge Providers Date of Admission: 10/15/23 22:22 Date of Discharge: October 17, 2023 Attending Provider at Admission: Sebastián Louise MD Attending Provider at Discharge: Tamra Fair MD Consults: cardiology Primary Care Provider: RADHA Hollis Diagnoses at Discharge Discharge Diagnosis (1) NSTEMI (non-ST elevated myocardial infarction): Status: Acute (2) Chest pain: Status: Acute (3) Hypertriglyceridemia: Status: Acute (4) Type 2 diabetes mellitus: Status: Acute Reason for Visit Reason for Visit: Chest pain, Back Pain, High BP Brief History: 38 year old female with past medical his tory significant for type 2 diabetes mellitus on insulin, hypertriglyceridemia, obesity, and Asperger syndrome who presents emergency department for left-sided chest pressure. She reports onset around 5:30 PM today. Describes the location is left-sided chest. Rates about a 4-5 out of 10. Reports it lasted about 10 minutes. She was walking when it happened. She is unsure about alleviating or aggravating factors. She is currently chest pain-free in the emergency department. Her mother is bedside reports extensive family history on the maternal side for heart disease. She reports the patient's biological father at age 39 from suspected son with cardiac reason . Hospital Course Hospital Course 38 year old female with past medical history significant for type 2 diabetes mellitus on insulin, hypertriglyceridemia, obesity, and Asperger syndrome who presents emergency department for left-sided chest pressure. Found to have NSTEMI. Given extensive cardiac history in the family, as per cardiology patient underwent cardiac cath which did not show any significant coronary artery disease. Chest pain resolved on admission and she is feeling better to be discharged home with aspirin 81 mg daily atorvastatin 40 mg daily and metoprolol 12.5 mg twice a day. Follow-up with TONIO Ramirez in 1 week. Physical Exam Narrative: GENERAL: Patient is alert, awake and oriented x3. [] NECK: No jugular vein distension. [] HEENT: No cyanosis. No icterus. No pallor. [] HEART: Regular S1 and S2. No murmur, rub or gallop. [] LUNGS: Clear to auscultate bilaterally. [] CENTRAL NERVOUS SYSTEM: Grossly nonfocal. [] EXTREMITIES: Lower extremities with no edema bilaterally. 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 echo complete* [id number] Routine Ultrasound 10/16/23 23:16 Taken Laboratory Results WBC 7.49 10^3/uL (3.29-11.43) 10/15/23 19:52 RBC 4.58 10^6/uL (3.85-5.65) 10/15/23 19:52 Hgb 13.30 g/dL (11.27-16.99) 10/15/23 19:52 Hct 40.3 % (36-47) 10/15/23 19:52 MCV 88.0 fl (85-98) 10/15/23 19:52 MCH 29.0 pg (27-33) 10/15/23 19:52 MCHC 33.0 g/dL (30-55) 10/15/23 19:52 RDW 12.8 % (12.1-15.1) 10/15/23 19:52 Plt Count 288 10^3/cmm (157-399) 10/16/23 01:51 MPV 9.1 fL (7.4-10.4) 10/15/23 19:52 Neut % (Auto) 53.9 % 10/15/23 19:52 Lymph % (Auto) 39.1 % 10/15/23 19:52 [place] % (Auto) 5.2 % 10/15/23 19:52 Eos % (Auto) 0.9 % 10/15/23 19:52 Baso % (Auto) 0.5 % 10/15/23 19:52 Neut # (Auto) 4.03 10^3/uL (1.8-7.7) 10/15/23 19:52 Lymph # (Auto) 2.9 10^3/uL (0.8-4.8) 10/15/23 19:52 [place] # (Auto) 0.4 10^3/uL (0.2-0.9) 10/15/23 19:52 Eos # (Auto) 0.1 10^3/uL (0.0-0.8) 10/15/23 19:52 Baso # (Auto) 0.0 10^3/uL (0.0-0.1) 10/15/23 19:52 Nucleated RBC % (auto) 0 % 10/15/23 19:52 Nucleated RBCs # 0.0 /100WBC 10/15/23 19:52 APTT 87.2 SECONDS (23.9-36.7) H 10/16/23 09:23 D-Dimer <= 0.27 ug/mLFEU (0-0.59) 10/15/23 19:52 Sodium 138 mmol/L (136-145) 10/15/23 19:52 Potassium 4.4 mmol/L (3.5-5.1) 10/15/23 19:52 Chloride 104 mmol/L (98-107) 10/15/23 19:52 Carbon Dioxide 25 mmol/L (22-29) 10/15/23 19:52 Anion Gap 13.4 (5-19) 10/15/23 19:52 BUN 20 mg/dL (6-20) 10/15/23 19:52 Creatinine 0.8 mg/dL (0.5-0.9) 10/15/23 19:52 GFR Calculation 80.7 mL/min (90-130) L 10/15/23 19:52 Glucose 156 mg/dL (65-115) H 10/15/23 19:52 POC Glucose 255 mg/dL (70-110) H 10/17/23 06:32 Estimat Average Glucose 151 10/16/23 01:51 Hemoglobin A1c 6.9 % (4.0-6.0) H 10/16/23 01:51 Calculated Osmolality 292 mOsm/kg (285-295) 10/15/23 19:52 Calcium 9.0 mg/dL (8.5-10.5) 10/15/23 19:52 Total Bilirubin 0.4 mg/dL (0.15-1.2) 10/15/23 19:52 AST 14 U/L (0-32) 10/15/23 19:52 ALT 12 U/L (0-33) 10/15/23 19:52 Alkaline Phosphatase 28 U/L (35-105) L 10/15/23 19:52 Troponin T Baseline < 6 ng/L (0-10) 10/15/23 19:52 Troponin T 120 Minute 12.53 ng/L (0-10) H 10/15/23 21:27 Delta Troponin T 6.02954 ABS# (0-10) 10/15/23 21:27 Troponin T Hi Sens 6Hr 42.24 ng/L (0-10) H 10/16/23 01:51 Troponin T Hi Sens 6Hr Delta 36.13452 ng/L (0-12) H* 10/16/23 01:51 Total Protein 6.9 g/dL (6.6-8.7) 10/15/23 19:52 Albumin 4.5 g/dL (3.5-5.2) 10/15/23 19:52 Globulin 2.4 g/dL (1.3-4.6) 10/15/23 19:52 Triglycerides 89 mg/dL (0-150) 10/16/23 01:51 Cholesterol 155 mg/dL (0-200) 10/16/23 01:51 LDL Cholesterol, Calc 91 mg/dL (50-129) 10/16/23 01:51 HDL Cholesterol 46 mg/dL (60-100) L 10/16/23 01:51 LDL/HDL Ratio 1.98 RATIO (0.00-3.22) 10/16/23 01:51 Cholesterol/HDL Ratio 3.37 mg/dL (0.0-4.40) 10/16/23 01:51 Lipase 25 U/L (13-60) 10/15/23 19:52 HCG, Qual Negative (Negative) 10/16/23 01:51 Influenza Type A Ag negative (Negative) 10/15/23 20:19 Influenza Type B Ag negative (Negative) 10/15/23 20:19 Vitals Last Vital Signs Temp 97.4 F L 10/17/23 07:05 Pulse 66 10/17/23 07:05 Resp 12 10/17/23 07:05 BP 115/67 10/17/23 07:05 Pulse Ox 99 10/17/23 07:05 O2 Del Method Room Air 10/17/23 07:05 Discharge Plan Discharge Patient Disposition: Home Condition: Stable Prescriptions: New atorvastatin 40 mg Tablet 40 mg PO BEDTIME 30 Days Qty: 30 0RF aspirin 81 mg Tablet,Delayed Release (Dr/Ec) 81 mg PO DAILY 30 Days Qty: 30 0RF metoprolol tartrate 25 mg Tablet 12.5 mg PO BID@0900,2100 30 Days Qty: 60 0RF Continued metformin 500 mg tablet 500 mg PO BID insulin lispro 100 unit/mL insulin pen See Protocol SUBCUT TIDWM Protocol: Insulin Corrective High-Dose Regimen Condition: Fingerstick Blood Glucose Dose/Route: Insulin Units Condition: 141-180 mg/dl Dose/Route: 6 units/SQ Condition: 181-220 mg/dl Dose/Route: 8 units/SQ Condition: 221-260 mg/dl Dose/Route: 10 units/SQ Condition: 261-300 mg/dl Dose/Route: 12 units/SQ Condition: 301-350 mg/dl Dose/Route: 14 units/SQ Condition: 351-400 mg/dl Dose/Route: 16 units/SQ Condition: greater than 400 mg/dl Dose/Route: 18 units/SQ fenofibrate nanocrystallized 145 mg tablet 145 mg PO DAILY insulin glargine [Lantus Solostar U-100 Insulin] 100 unit/mL (3 mL) insulin pen 18 unit SUBCUT DAILY Rybelsus 3 mg tablet 3 mg PO DAILY Discharge Orders: Discharge Order (Routine); Ordered 10/17/23 Ordered By: Tamra Fair Referrals: Vilma Ramirez FNP [Nurse Practitioner] - 11/02/23 3:00 pm Trejo,RADHA Richardson [Primary Care Provider] - 10/26/23 9:30 am Discharge Diet: Advance as tolerated Discharge Activity: Resume usual activity Patient Instructions: Chest Pain (ED), Coronary Angioplasty (DC), Opioid Safety, Post Angiogram Home Care Instructions, Post Heart Attack Stoplight Stand Alone Forms: Work/School Release Discharge Attestations Time Spent in Discharge Care*: less than 30 min Quality Metrics Clinical Quality Measures [ No reported AMI, CVA or VTE this stay] Coding Level of Care Code Acute Code for [facility] Fwd Diagnoses NSTEMI (non-ST elevated myocardial infarction) I21.4 Chest pain R07.9 Hypertriglyceridemia E78.1 Type 2 diabetes mellitus E11.9 Time Spent (min) 15
[2023-10-17 10:40] VITALS: BP 115/67; PULSE 66; RESP 12; TEMP 36.3; O2SAT 99
--- NOTE | 2023-10-17 11:18 | PC.NURSE ---
Discharge Note Patient discharged to [home] via [w/c to POV] accompanied by [her spouse]. Discharge instructions reviewed with patient and/or inside sales representative. Mobile pharmacy medications and/or prescriptions provided. Belongings/home medications returned.
== END 2023-10-17 11:35 | disposition home or self-care (01) ==
LOC: ER 22:03 → CSU 22:23
PROVIDERS: Internal Medicine; Admitting Provider Internal Medicine; Emergency Provider Emergency Medicine; PCP Nurse Practitioner Family; Visit Provider Internal Medicine
DX: I21.4 Non-ST elevation (NSTEMI) myocardial infarction (principal); E78.1 Pure hyperglyceridemia; E11.9 Type 2 diabetes mellitus without complications; Z79.4 Long term (current) use of insulin; E66.9 Obesity, unspecified; Z68.32 Body mass index [BMI] 32.0-32.9, adult; F84.5 Asperger's syndrome; Z82.49 Family history of ischemic heart disease and other diseases of the circulatory system
CPT/HCPCS: 36415; 36416; 71045; 80053; 80061; 82962; 83036; 83690; 84484; 84703; 85025; 85049; 85378; 85730; 87804; 93005; 93306; 93458; 96372; 96374; 96375; 96376; 99152; 99153; 99285; C1760; C1769; C1887; C1894; G0269; G0378; J1200; J1644; J1650; J1815; J2250; J3010; J3490; J7030; Q9967

== ENCOUNTER → 2023-11-02 16:02 | Outpatient (BNVA) | payer OTHER, SELFPAY | PROVIDERS: PCP Nurse Practitioner Family; Visit Provider Nurse Practitioner Family | DX: I21.4 Non-ST elevation (NSTEMI) myocardial infarction (principal) | CPT/HCPCS: 36415; 80048 ==